=== PATIENT | female | born 2000 | race African-American/Black ===

== ENCOUNTER 2018-03-11 13:43 | Outpatient (CLI) | payer OTHER ==
--- NOTE | 2018-03-11 16:25 | ULT ---
OBSTETRICAL SONOGRAM: HISTORY: evaluation. Second trimester gestation. FINDINGS: A single intrauterine gestation is visible in a cephalic presentation. The cervix is predominantly o bscured by ossification of the cranium. The grade 0 placenta is anterior. The amniotic fluid is within normal limits. No gross intracranial abnormalities are apparent. Three-vessel cord shows a normal insertion. Four-chamber heart at 139 beats per minute. No gross intracranial abnormalities are apparent. spine and kidneys are intact as visualized. Measurements are as follows: BIPARIETAL DIAMETER: 22 weeks 1 day HEAD CIRCUMFERENCE: 22 weeks 0 days ABDOMINAL CIRCUMFERENCE: 22 weeks 0 days FEMUR LENGTH: 22 weeks 1 day Estimated date delivery, based on today's sonogram, is 07/14/2018. Hadlock percentile is 98%. IMPRESSION: Single viable intrauterine gestation. Estimated gestational age 22 weeks 1 day. Greater than two st andard deviations larger than the expected size based on the reported last menstrual period gestation al age. POS: [facility]
== END 2018-03-11 13:44 | disposition home or self-care (01) ==
LOC: BICULT 13:43
PROVIDERS: ATTEND Family Medicine
DX: Z34.82 Encounter for supervision of other normal pregnancy, second trimester (principal)
CPT/HCPCS: 76805

== ENCOUNTER 2018-06-25 11:51 | Observation (INO) | payer OTHER ==
[2018-06-25 12:36] VITALS: TEMP 97.9; BMI 24.6
[2018-06-25 12:53] LABS: #Basophils 0.1 thou/uL (0.0-0.2); #Eosinphils 0.1 thou/uL (0.0-0.7); #Lymphocytes 1.8 thou/uL (1.20-3.40); #Monocytes 0.5 thou/uL (0.11-0.59); #Neutrophils 3.4 thou/uL (1.40-6.50); %Basophils 1.1 % (0.0-1.0); %Eosinophils 1.2 % (0.0-10.0); %Lymphocytes 30.6 % (28.0-48.0); %Neutrophils 58.2 % (31.0-61.0); Hemoglobin 12.8 g/dL (12.0-16.0); Mean Corpuscular HGB CONC 33.7 g/dL (32.0-36.0); Mean Corpuscular Hemoglobin 31.5 pg (25.0-35.0); Mean Corpuscular Volume 93.3 fL (78.0-98.0); Mean Platelet Volume 9.1 fL (7.4-10.4); Platelet Count 190 thou/uL (130-400); RBC Distribution Width 11.4 % (11.5-14.5); Red Blood Cell (RBC) Count 4.07 mill/uL (4.00-5.20); White Blood Cell (WBC) Count 5.9 thou/uL (4.8-10.8)
[2018-06-25 13:14] LABS: ALT (SGPT) 20 U/L (8-55); AST (SGOT) 26 U/L (5-30); Albumin 3.4 g/dL (3.5-5.0); Alkaline Phosphatase 168 U/L (40-150); Anion Gap 14 mmol/L (10-20); BUN (Urea Nitrogen) 7 mg/dL (8.4-21.0); Bilirubin, Total 0.5 mg/dL (0.2-1.2); Calc. Creatinine Clearance 134 mL/min (70-130); Carbon Dioxide 21 mmol/L (22-29); Chloride 107 mmol/L (98-107); Estimated GFR-MDRD Greater than 90; Globulin 2.8 g/dL (2.4-3.5); Glucose 77 mg/dL (70-105); Potassium 3.8 mmol/L (3.5-5.1); Protein, Total 6.2 g/dL (6.0-8.3); Sodium 138 mmol/L (136-145)
--- NOTE | 2018-06-25 14:43 | ULT ---
OB ULTRASOUND: HISTORY: Growth and TIANA. Nonstress biophysical profile. TECHNIQUE: Sagittal and transverse imaging of the gravid uterus is performed. FINDINGS: Single intrauterine gestation, cephalic presentation. Anterior placenta. The presence or absence of previa cannot be assessed on this examination due to shadowing at the level of the cervix. heart tones with a rate of 130 b.p.m. There is a 4-chamber heart. BIOMETRY: BPD 8.90 cm, 36 weeks 0 days Head circumference 32.7 cm, 37 weeks 1 day Abdominal circumference 31.36 cm, 35 weeks 2 days Femur length 6.99 cm, 35 weeks 6 days Estimated weight is 2750 grams. Amniotic fluid index is 12 cm. NONSTRESS BIOPHYSICAL PROFILE: tone: 2. breathin. movement: 2. Amniotic fluid: 2. Total Score: 8 out of 8. IMPRESSION: 1. Single intrauterine gestation with heart tones. Average by sonography is 36 weeks 1 day. 2. Estimated weight is 2750 gm +/- 407 gm. 3. Non-stress biophysical profile with a core of 8 out of 8. POS: [facility]
[2018-06-25] MEDS ORDERED: Docusate 100 MG CAP PO PRN (23:56)
[2018-06-25] MEDS ORDERED: Ondansetron PF 4 MG/2 ML Vial IVP PRN (23:56)
[2018-06-26] MEDS: Acetaminophen 500 MG TAB PO PRN ×2 (00:05→09:16)
[2018-06-26 06:14] VITALS: BP 120/61
[2018-06-26 18:17] LABS: Protein, Urine Less than 10 mg/dL (1-14)
[2018-06-26 18:57] LABS: Urine Total Volume 1150 mL (600-1600)
== END 2018-06-26 19:57 | disposition home or self-care (01) ==
LOC: L&D/OP 11:51 → L&D 16:13
PROVIDERS: ADMIT Family Medicine; ATTEND Family Medicine
DX: O99.89 Other specified diseases and conditions complicating pregnancy, childbirth and the puerperium (principal); R03.0 Elevated blood-pressure reading, without diagnosis of hypertension; Z3A.37 37 weeks gestation of pregnancy; Z79.899 Other long term (current) drug therapy
CPT/HCPCS: 36415; 76815; 76819; 80053; 82570; 84156; 85025; 99285; G0378

== ENCOUNTER 2018-06-30 20:00 | Inpatient (IN) | payer OTHER ==
[2018-06-30] MEDS ORDERED: Diphenoxylate HCl/Atropine Tablet PO PRN (23:15)
[2018-06-30] MEDS ORDERED: NS w/ Oxytocin 10 units 500 ML IV SCH ×2 (23:15)
[2018-06-30] MEDS ORDERED: Misoprostol 200 MCG TAB PR PRN (23:15)
[2018-06-30] MEDS ORDERED: Carboprost 250 MCG/ML AMP IM PRN (23:15)
[2018-06-30] MEDS ORDERED: Ondansetron PF 4 MG/2 ML Vial IVP PRN (23:15)
[2018-06-30] MEDS ORDERED: Lidocaine 1% (PF) 30 ML VIAL SC PRN (23:15)
[2018-06-30] MEDS ORDERED: Butorphanol Tartrate 1 MG/ML VIAL SLOW IVP PRN (23:15)
[2018-06-30] MEDS ORDERED: NS / Oxytocin 40 units/1000ml 1,000 ML IV PRN (23:15)
[2018-06-30] MEDS ORDERED: Ibuprofen 800 MG TAB PO PRN (23:15)
[2018-06-30] MEDS ORDERED: HYDROcodone/Acetaminophen 5/325 mg Tablet PO PRN (23:15)
[2018-06-30 23:19] VITALS: BMI 24.7
[2018-06-30] MEDS: Lactated Ringer's 1,000 ML IV SCH (23:30)
[2018-06-30] MEDS ORDERED: Misoprostol 100 MCG TAB VAG SCH (23:59)
[2018-06-30] MEDS ORDERED: Penicillin G 2.5 MILL.units 2.5 MILL.UNITS in Premix Bag 1 BAG IVPB SCH (23:59)
[2018-06-30] MEDS ORDERED: Penicillin G Potassium 5 MILL.UNITS in Sodium Chloride 0.9% 100 ML IVPB SCH (23:59)
[2018-07-01 00:02] LABS: Hemoglobin 12.5 g/dL (12.0-16.0); Mean Corpuscular HGB CONC 33.6 g/dL (32.0-36.0); Mean Corpuscular Hemoglobin 31.7 pg (25.0-35.0); Mean Corpuscular Volume 94.4 fL (78.0-98.0); Mean Platelet Volume 9.6 fL (7.4-10.4); Platelet Count 192 thou/uL (130-400); RBC Distribution Width 11.3 % (11.5-14.5); Red Blood Cell (RBC) Count 3.94 mill/uL (4.00-5.20); White Blood Cell (WBC) Count 7.2 thou/uL (4.8-10.8)
[2018-07-01] MEDS: Lactated Ringer's 1,000 ML IV SCH ×2 (00:25→01:00)
[2018-07-01 00:36] LABS: AST (SGOT) 24 U/L (5-30); Albumin 3.5 g/dL (3.5-5.0); Anion Gap 15 mmol/L (10-20); BUN (Urea Nitrogen) 13 mg/dL (8.4-21.0); Bilirubin, Total 0.6 mg/dL (0.2-1.2); Calc. Creatinine Clearance 144 mL/min (70-130); Calcium 9.2 mg/dL (7.8-10.44); Carbon Dioxide 20 mmol/L (22-29); Chloride 108 mmol/L (98-107); Estimated GFR-MDRD Greater than 90; Globulin 2.8 g/dL (2.4-3.5); Glucose 86 mg/dL (70-105); Potassium 3.8 mmol/L (3.5-5.1); Protein, Total 6.3 g/dL (6.0-8.3); Sodium 139 mmol/L (136-145)
[2018-07-01 00:38] LABS: Alkaline Phosphatase 168 U/L (40-150)
[2018-07-01 00:39] LABS: Syphilis Antibody Nonreactive (Nonreactive); Syphilis Antibody Index 0.04 S/CO (<1.00 Non-Reactive)
[2018-07-01 00:40] LABS: HBSAg Index 0.21 S/CO (0-0.99); Hep B Surf Ag Non-Reactive S/CO (NonReactive)
[2018-07-01 00:41] LABS: ALT (SGPT) 26 U/L (8-55)
[2018-07-01] MEDS ORDERED: Fentanyl 4 mcg/Bup 0.1% Cadd 100 ML ONE (07:32)
[2018-07-01] MEDS ORDERED: Acetaminophen 325 MG TAB PO PRN (08:09)
[2018-07-01] MEDS ORDERED: Ondansetron PF 4 MG/2 ML Vial IVP PRN ×2 (08:09→13:14)
[2018-07-01] MEDS ORDERED: ePHEDrine/0.9% NaCl/PF SYRINGE 50 mg/10 ml SLOW IVP PRN (08:09)
[2018-07-01] MEDS ORDERED: Eucerin (Mineral Oil/Petrolatum,White) 30 gm Jar TOP PRN (08:09)
[2018-07-01] MEDS ORDERED: Promethazine HCl 25 MG/ML VIAL IM PRN (08:09)
[2018-07-01] MEDS ORDERED: diphenhydrAMINE 50 MG/ML VIAL IVP PRN (08:09)
[2018-07-01] MEDS ORDERED: Naloxone HCl 0.4 mg/ml Vial IVP PRN ×2 (08:09)
[2018-07-01] MEDS ORDERED: Lactated Ringer's 500 ML IV PRN (08:09)
[2018-07-01] MEDS ORDERED: Communication Order-Pharmacy FS SCH (08:15)
[2018-07-01] MEDS ORDERED: Fentanyl 4 mcg/Bupivacaine 0.1% Cassette 100 ML EPIDURAL SCH (08:15)
[2018-07-01] MEDS ORDERED: Fentanyl 100 MCG/2 ML VIAL ONE (08:43)
[2018-07-01] MEDS ORDERED: Benzocaine/Menthol 20-0.5% 60 ML CAN TOP PRN (13:14)
[2018-07-01] MEDS ORDERED: diphenhydrAMINE 25 MG CAP PO PRN (13:14)
[2018-07-01] MEDS ORDERED: Lanolin Ointment 7 GM TUBE TOP PRN (13:14)
[2018-07-01] MEDS ORDERED: Bisacodyl 10 MG SUPP PR PRN (13:14)
[2018-07-01] MEDS ORDERED: Adacel (T-DAP) 0.5 ML SYRINGE IM ONE (13:14)
[2018-07-01] MEDS ORDERED: NS / Oxytocin 40 units/1000ml 1,000 ML IV SCH (13:14)
[2018-07-01] MEDS ORDERED: Preparation H Ointment 28 GM TUBE PR PRN (13:14)
[2018-07-01] MEDS ORDERED: Milk Of Magnesia 30 ML UDCUP PO PRN (13:14)
[2018-07-01] MEDS ORDERED: HYDROcodone/Acetaminophen 5/325 mg Tablet PO PRN ×2 (13:14)
[2018-07-01] MEDS: Ferrous Sulfate 325 MG TAB PO SCH (15:57)
[2018-07-01] MEDS: Ibuprofen 800 MG TAB PO SCH ×2 (15:58→22:02)
[2018-07-01] MEDS ORDERED: cloNIDine 0.1 MG TAB PO PRN (17:36)
[2018-07-01] MEDS: Docusate Calcium (SURFAK) 240 MG CAP PO SCH (22:02)
[2018-07-02] MEDS: Ibuprofen 800 MG TAB PO SCH ×3 (05:49→21:38)
[2018-07-02 06:55] LABS: Hemoglobin 11.7 g/dL (12.0-16.0); Mean Corpuscular HGB CONC 33.2 g/dL (32.0-36.0); Mean Corpuscular Hemoglobin 31.6 pg (25.0-35.0); Mean Corpuscular Volume 95.4 fL (78.0-98.0); Mean Platelet Volume 9.3 fL (7.4-10.4); Platelet Count 154 thou/uL (130-400); RBC Distribution Width 11.3 % (11.5-14.5); Red Blood Cell (RBC) Count 3.69 mill/uL (4.00-5.20); White Blood Cell (WBC) Count 9.2 thou/uL (4.8-10.8)
[2018-07-02] MEDS: Ferrous Sulfate 325 MG TAB PO SCH ×2 (10:05→18:41)
[2018-07-02] MEDS: Prenatal Vitamin 1 TAB PO SCH (10:05)
[2018-07-02] MEDS: Docusate Calcium (SURFAK) 240 MG CAP PO SCH ×2 (10:05→21:38)
[2018-07-03] MEDS: Ibuprofen 800 MG TAB PO SCH ×2 (05:49→14:15)
[2018-07-03 08:21] VITALS: BP 126/76; TEMP 98
[2018-07-03] MEDS: Ferrous Sulfate 325 MG TAB PO SCH (09:36)
[2018-07-03] MEDS: Docusate Calcium (SURFAK) 240 MG CAP PO SCH (09:36)
[2018-07-03] MEDS: Prenatal Vitamin 1 TAB PO SCH (09:36)
== END 2018-07-03 18:55 | disposition home or self-care (01) | DRG 807 ==
LOC: L&D 22:46 → 3SW 07-01 15:19
PROVIDERS: ADMIT Family Medicine; ATTEND Family Medicine
PROC: 10E0XZZ Delivery of Products of Conception, External Approach (ICD-10-PCS; principal; 2018-07-01)
PROC: 0HQ9XZZ Repair Perineum Skin, External Approach (ICD-10-PCS; 2018-07-01)
PROC: 4A1HXCZ Monitoring of Products of Conception, Cardiac Rate, External Approach (ICD-10-PCS; 2018-07-01)
PROC: 4A1HXFZ Monitoring of Products of Conception, Cardiac Rhythm, External Approach (ICD-10-PCS; 2018-07-01)
DX: O13.4 Gestational [pregnancy-induced] hypertension without significant proteinuria, complicating childbirth (principal); Z37.0 Single live birth; Z3A.38 38 weeks gestation of pregnancy; O99.824 Streptococcus B carrier state complicating childbirth; O70.0 First degree perineal laceration during delivery; O76 Abnormality in fetal heart rate and rhythm complicating labor and delivery; O69.81X0 Labor and delivery complicated by cord around neck, without compression, not applicable or unspecified
CPT/HCPCS: 36415; 51702; 80053; 85027; 86780; 86850; 86900; 86901; 87340; J2540; J3010; J7050

== ENCOUNTER 2018-12-25 10:24 | Outpatient (CLI) | payer OTHER ==
--- NOTE | 2018-12-25 15:37 | ULT ---
OBSTETRICAL ULTRASOUND: 12/25/18 COMPARISON: None. HISTORY: 19-year-old female undergoing assessment for size and dates. TECHNIQUE: Multiplanar carrillo scale sonographic imaging of the gravid uterus obtained. FINDINGS: There is a single intrauterine gestation present. Cervical length is approximately 4.2 cm. pre sentation is vertex. Placenta is located in the anterior fundus, demonstrating no evidence for placen marcie previa or abruption. heart rate is 140 beats per minute. The kidneys and urinary bladder, stomach, umbilical cord insertion, heart, spine, umbilical co rd, nose-lips, and intracranial contents appear normal. BIOMETRY: BPD 4.1 cm 18 weeks, 4 days HC 16.1 cm 19 weeks, 0 days AC 12.8 cm 18 weeks, 3 days FL 3.2 cm 19 weeks, 6 days Average age based on ultrasound is 19 weeks, 0 days. Estimated date of delivery is 05/21/2019. Estimat ed weight is 270 grams +/- 39 grams. IMPRESSION: Unremarkable obstetrical ultrasound as detailed above. POS: [facility]
== END 2018-12-25 10:25 | disposition home or self-care (01) ==
LOC: BICULT 10:24
PROVIDERS: ATTEND Family Medicine
DX: O09.892 Supervision of other high risk pregnancies, second trimester (principal); Z3A.19 19 weeks gestation of pregnancy
CPT/HCPCS: 76805

== ENCOUNTER 2019-05-13 10:41 | Inpatient (IN) | payer OTHER ==
[~2019-05-13 10:41] MED LIST: Bupivacaine 0.25% HCL 30 ML VIAL ONE
[2019-05-13] MEDS ORDERED: Penicillin G Potassium 5 MILL.UNITS VIAL ONE (11:19)
[2019-05-13 11:21] VITALS: BMI 29.0
[2019-05-13] MEDS ORDERED: Butorphanol Tartrate 1 MG/ML VIAL SLOW IVP PRN (11:25)
[2019-05-13] MEDS ORDERED: Zolpidem Tartrate 5 MG TAB PO PRN (11:25)
[2019-05-13] MEDS ORDERED: HYDROcodone/Acetaminophen 5/325 mg Tablet PO PRN ×4 (11:25→15:51)
[2019-05-13] MEDS ORDERED: Meperidine HCl/PF 25 MG/ML VIAL IM/IV PRN (11:25)
[2019-05-13] MEDS ORDERED: NS / Oxytocin 40 units/1000ml 1,000 ML IV PRN (11:25)
[2019-05-13] MEDS ORDERED: Acetaminophen 500 MG TAB PO PRN (11:25)
[2019-05-13] MEDS ORDERED: Ibuprofen 800 MG TAB PO PRN (11:25)
[2019-05-13] MEDS ORDERED: hydrALAZINE 20 MG/ML VIAL SLOW IVP PRN ×2 (11:25→15:51)
[2019-05-13] MEDS ORDERED: Lidocaine 1% (PF) 30 ML VIAL SC PRN (11:25)
[2019-05-13] MEDS ORDERED: Ondansetron PF 4 MG/2 ML Vial IVP PRN ×2 (11:25→15:51)
[2019-05-13] MEDS ORDERED: Promethazine HCl 25 MG/ML VIAL IM PRN ×2 (11:25→15:51)
[2019-05-13] MEDS ORDERED: NS w/ Oxytocin 10 units 500 ML IV SCH (11:30)
[2019-05-13] MEDS ORDERED: Lactated Ringer's 1,000 ML IV SCH ×2 (11:30)
[2019-05-13] MEDS ORDERED: Fentanyl 4 mcg/Bup 0.1% Cadd 100 ML ONE (11:40)
[2019-05-13] MEDS ORDERED: Penicillin G Potassium 5 MILL.UNITS in Sodium Chloride 0.9% 100 ML IVPB SCH (11:45)
[2019-05-13 11:49] LABS: Hemoglobin 11.3 g/dL (12.0-16.0); Mean Corpuscular HGB CONC 34.6 g/dL (32.0-36.0); Mean Corpuscular Hemoglobin 30.1 pg (25.0-35.0); Mean Platelet Volume 10.3 fL (7.4-10.4); Platelet Count 152 thou/uL (130-400); RBC Distribution Width 12.4 % (11.5-14.5); Red Blood Cell (RBC) Count 3.74 mill/uL (4.00-5.20)
--- NOTE | 2019-05-13 11:49 | PDOC.LDHP ---
Labor and Delivery H&P Chief complaint: contractions, loss of fluid HPI: 18 yo BF here c/o SROM clear at 1030 now with regular UCs. Current gestational age (weeks): 39 Due date: 05/18/19 Dating criteria: last menstrual period Grav: 2 Para: 1 OB History Details: PNC with Dr. Hoff w/o complications. Current complications: none Abnormal US findings: No Past Medical History: none Current medications: pre-erlinda vitamins Previous surgical history: none Allergies/Adverse Reactions: Allergies Allergy/AdvReac Type Severity Reaction Status Date / Time No Known Allergies Allergy Verified 06/30/18 23:21 Social history: none - Physical Exam Vital signs reviewed and normal: yes General: breathing through contractions Heart: RRR Lungs: CTAB Abdomen: gravid Extremeties: trace edema FHT: category 1 [place] contractions every: UCs q 3-4 mins - Vaginal Exam cm dilated: 7 Effacement: 100% Station: 0 - OB Labs GBS: positive - Assessment L&D Assessment: term rupture in membranes - Plan Plan: admit to L&D, labor augmentation if indicated (Dr. Hoff notified by Labor RN of pt. admit), GBS antibiotic prophylaxis, informed consent obtained, anesthesia consult for pain management
[2019-05-13 12:27] LABS: HBSAg Index 0.24 S/CO (0-0.99); Hep B Surf Ag Non-Reactive S/CO (NonReactive)
[2019-05-13 12:28] LABS: Syphilis Antibody Nonreactive (Nonreactive); Syphilis Antibody Index 0.04 S/CO (<1.00 Non-Reactive)
[2019-05-13] MEDS ORDERED: Milk Of Magnesia 30 ML UDCUP PO PRN (15:51)
[2019-05-13] MEDS ORDERED: diphenhydrAMINE 25 MG CAP PO PRN (15:51)
[2019-05-13] MEDS ORDERED: NS / Oxytocin 40 units/1000ml 1,000 ML IV SCH (15:51)
[2019-05-13] MEDS ORDERED: Benzocaine-Menthol 82.5 ML CAN TOP PRN (15:51)
[2019-05-13] MEDS ORDERED: Bisacodyl 10 MG SUPP PR PRN (15:51)
[2019-05-13] MEDS ORDERED: Penicillin G 2.5 MILL.units 2.5 MILL.UNITS in Premix Bag 1 BAG IVPB SCH (16:00)
[2019-05-13] MEDS: Ferrous Sulfate 325 MG TAB PO SCH (18:07)
[2019-05-13] MEDS: Docusate Calcium (SURFAK) 240 MG CAP PO SCH (21:24)
[2019-05-13] MEDS ORDERED: Ibuprofen 800 MG TAB PO SCH (22:00)
[2019-05-14] MEDS: Ibuprofen 800 MG TAB PO SCH ×3 (03:55→21:59)
[2019-05-14 05:49] LABS: Hemoglobin 10.5 g/dL (12.0-16.0); Mean Corpuscular HGB CONC 33.1 g/dL (32.0-36.0); Mean Corpuscular Hemoglobin 28.9 pg (25.0-35.0); Mean Corpuscular Volume 87.3 fL (78.0-98.0); Mean Platelet Volume 10.1 fL (7.4-10.4); Platelet Count 148 thou/uL (130-400); RBC Distribution Width 12.6 % (11.5-14.5); Red Blood Cell (RBC) Count 3.65 mill/uL (4.00-5.20); White Blood Cell (WBC) Count 10.8 thou/uL (4.8-10.8)
[2019-05-14] MEDS: Ferrous Sulfate 325 MG TAB PO SCH ×2 (07:36→15:17)
[2019-05-14] MEDS: Prenatal Vitamin 1 TAB PO SCH (09:03)
[2019-05-14] MEDS: Docusate Calcium (SURFAK) 240 MG CAP PO SCH ×2 (09:03→21:59)
[2019-05-14] MEDS ORDERED: Adacel (T-DAP) 0.5 ML SYRINGE IM ONE (15:51)
[2019-05-15] MEDS: Ibuprofen 800 MG TAB PO SCH (06:19)
[2019-05-15 08:15] VITALS: BP 131/78; TEMP 98.1
[2019-05-15] MEDS: Prenatal Vitamin 1 TAB PO SCH (09:40)
[2019-05-15] MEDS: Docusate Calcium (SURFAK) 240 MG CAP PO SCH (09:41)
[2019-05-15] MEDS: Ferrous Sulfate 325 MG TAB PO SCH (09:42)
== END 2019-05-15 10:30 | disposition home or self-care (01) | DRG 807 ==
LOC: L&D/OP 10:41 → L&D-LIB 12:53 → 3SW 16:45
PROVIDERS: ADMIT Family Medicine; ATTEND Family Medicine
PROC: 10E0XZZ Delivery of Products of Conception, External Approach (ICD-10-PCS; principal; 2019-05-13)
DX: O62.3 Precipitate labor (principal); Z37.0 Single live birth; O99.824 Streptococcus B carrier state complicating childbirth; Z3A.39 39 weeks gestation of pregnancy
CPT/HCPCS: 36415; 85027; 86780; 86850; 86900; 86901; 87340; 99285; J2001; J2540; J3490; S0020

== ENCOUNTER 2020-07-30 13:52 | Outpatient (CLI) | payer OTHER | END 2020-07-30 13:53 | disposition home or self-care (01) | LOC: BICULT 13:52 | PROVIDERS: ATTEND Family Medicine | DX: O09.892 Supervision of other high risk pregnancies, second trimester (principal); Z3A.20 20 weeks gestation of pregnancy | CPT/HCPCS: 76805 ==

== ENCOUNTER 2022-03-22 14:09 | Inpatient (IN) | payer OTHER ==
[2022-03-22 16:30] VITALS: BMI 18.3
[2022-03-22] MEDS ORDERED: Senokot S 8.6-50 MG TAB PO PRN (17:08)
[2022-03-22] MEDS ORDERED: Bisacodyl 5 MG TAB PO PRN (17:08)
[2022-03-22] MEDS ORDERED: Potassium Chloride 20 MEQ TAB PO SCH (18:00)
[2022-03-22] MEDS: cefTRIAXone\\ROCEPHIN 2 GM in Sodium Chloride 0.9% 100 ML IVPB SCH (18:13)
[2022-03-22] MEDS: metroNIDAZOLE 500 MG TAB PO SCH (18:30)
[2022-03-22] MEDS: Doxycycline 100 MG CAP PO SCH (20:37)
[2022-03-22] MEDS: Ondansetron ODT 4 MG TAB PO PRN (23:01)
[2022-03-23] MEDS: Acetaminophen 325 MG TAB PO PRN ×2 (01:50→14:40)
[2022-03-23 06:42] LABS: #Lymphocytes 1.4 thou/uL (1.20-3.40); #Neutrophils 8.7 thou/uL (1.40-6.50); %Basophils 0.1 % (0.0-1.0); %Eosinophils 0.3 % (0.0-10.0); %Lymphocytes 12.2 % (21.0-51.0); %Monocytes 8.7 % (0.0-10.0); %Neutrophils 78.8 % (42.0-75.0); Hemoglobin 11.8 g/dL (12.0-16.0); Mean Corpuscular HGB CONC 33.1 g/dL (32.0-36.0); Mean Corpuscular Hemoglobin 31.4 pg (27.0-31.0); Mean Corpuscular Volume 95.1 fl (78.0-98.0); Mean Platelet Volume 8.9 fL (7.4-10.4); Platelet Count 139 10x3/uL (130-400); RBC Distribution Width 11.3 % (11.5-14.5); Red Blood Cell (RBC) Count 3.74 mill/uL (4.20-5.40); White Blood Cell (WBC) Count 11.1 10x3/uL (4.8-10.8)
[2022-03-23 07:02] LABS: Anion Gap 11 mmol/L (10-20); BUN (Urea Nitrogen) 9 mg/dL (7.0-18.7); Calc. Creatinine Clearance 90 mL/min (70-130); Calcium 8.8 mg/dL (7.8-10.44); Carbon Dioxide 24 mmol/L (22-29); Chloride 105 mmol/L (98-107); Estimated GFR 115; Glucose 102 mg/dL (70-105); Potassium 3.8 mmol/L (3.5-5.1); Sodium 136 mmol/L (136-145)
[2022-03-23] MEDS ORDERED: FLU VACC QS2022-23(6MOS UP)/PF 60 MCG/0.5 ML SYRINGE IM ONE (09:00)
[2022-03-23] MEDS: Enoxaparin Sodium 30 MG/0.3 ML SYRINGE SC SCH (09:21)
[2022-03-23] MEDS: metroNIDAZOLE 500 MG TAB PO SCH ×2 (09:21→21:05)
[2022-03-23] MEDS: Doxycycline 100 MG CAP PO SCH ×2 (09:21→21:05)
[2022-03-23 10:55] LABS: Chlamydia by PCR Not Detected (NotDetected); GC by PCR Not Detected (NotDetected)
[2022-03-23] MEDS: Ondansetron ODT 4 MG TAB PO PRN ×2 (14:40→21:44)
[2022-03-23 16:25] LABS: HIV (1/2) Antibody/Antigen Non-Reactive (NonReactive); HIV 1/2 INDEX 0.14 S/CO (<1.00)
[2022-03-23] MEDS: cefTRIAXone\\ROCEPHIN 2 GM in Sodium Chloride 0.9% 100 ML IVPB SCH (17:40)
[2022-03-24 06:30] LABS: #Eosinphils 0.1 thou/uL (0.0-0.7); #Lymphocytes 1.4 thou/uL (1.20-3.40); #Monocytes 0.9 thou/uL (0.11-0.59); #Neutrophils 4.8 thou/uL (1.40-6.50); %Basophils 0.5 % (0.0-1.0); %Eosinophils 0.8 % (0.0-10.0); %Lymphocytes 19.2 % (21.0-51.0); %Monocytes 11.9 % (0.0-10.0); %Neutrophils 67.7 % (42.0-75.0); Hemoglobin 11.6 g/dL (12.0-16.0); Mean Corpuscular Hemoglobin 30.4 pg (27.0-31.0); Platelet Count 151 10x3/uL (130-400); RBC Distribution Width 11.3 % (11.5-14.5); Red Blood Cell (RBC) Count 3.81 mill/uL (4.20-5.40); White Blood Cell (WBC) Count 7.1 10x3/uL (4.8-10.8)
[2022-03-24 06:48] LABS: Anion Gap 11 mmol/L (10-20); BUN (Urea Nitrogen) 8 mg/dL (7.0-18.7); Calc. Creatinine Clearance 92 mL/min (70-130); Calcium 8.8 mg/dL (7.8-10.44); Carbon Dioxide 25 mmol/L (22-29); Chloride 105 mmol/L (98-107); Estimated GFR 118; Glucose 86 mg/dL (70-105); Potassium 3.6 mmol/L (3.5-5.1); Sodium 137 mmol/L (136-145)
[2022-03-24 08:30] VITALS: TEMP 98.4
[2022-03-24] MEDS: Acetaminophen 325 MG TAB PO PRN (08:40)
[2022-03-24] MEDS: Enoxaparin Sodium 30 MG/0.3 ML SYRINGE SC SCH (08:41)
[2022-03-24] MEDS: metroNIDAZOLE 500 MG TAB PO SCH (08:41)
[2022-03-24] MEDS: Doxycycline 100 MG CAP PO SCH (08:41)
[2022-03-24 11:24] VITALS: BP 102/63
== END 2022-03-24 15:00 | disposition home or self-care (01) | DRG 690 ==
LOC: T4-A 16:16
PROVIDERS: ADMIT Internal Medicine; ATTEND Internal Medicine
DX: N10 Acute pyelonephritis (principal); N83.291 Other ovarian cyst, right side; N15.1 Renal and perinephric abscess; B96.20 Unspecified Escherichia coli [E. coli] as the cause of diseases classified elsewhere; E87.6 Hypokalemia; Z80.0 Family history of malignant neoplasm of digestive organs; Z87.440 Personal history of urinary (tract) infections
CPT/HCPCS: 36415; 76856; 80048; 85025; 87086; 87389; 87480; 87491; 87510; 87591; 87660; 93976; J0696; J1650; J3490; Q0162; U0003; U0005

== ENCOUNTER 2022-10-20 08:58 | Outpatient (CLI) | payer OTHER | END 2022-10-20 08:59 | disposition home or self-care (01) | LOC: BICULT 08:58 | PROVIDERS: ATTEND Family Medicine | DX: O09.892 Supervision of other high risk pregnancies, second trimester (principal); Z3A.25 25 weeks gestation of pregnancy | CPT/HCPCS: 76805 ==